=== PATIENT | male | born 1945 | race Caucasian/White ===

== ENCOUNTER 2020-12-28 05:29 | Day surgery (SDC) | payer OTHER ==
[2020-12-22 13:34] LABS: BASOPHILS % (AUTO) 0.2 % (0-1); EOSINOPHILS % (AUTO) 0 % (0-6); LYMPHOCYTES # (AUTO) 0.8 X10'3 (1.1-4.8); LYMPHOCYTES % (AUTO) 13.7 % (21-51); MEAN CORPUSCULAR HEMOGLOBIN 30.4 PG (27.0-31.0); MEAN CORPUSCULAR HGB CONC 33.2 g/dL (33.0-36.5); MEAN CORPUSCULAR VOLUME 91.4 FL (78-98); MEAN PLATELET VOLUME 9.5 FL (7.4-10.4); MONOCYTES # (AUTO) 0.5 X10'3 (0-0.9); MONOCYTES % (AUTO) 8.3 % (2-12); NEUTROPHILS # (AUTO) 4.7 X10'3 (1.8-7.7); NEUTROPHILS % (AUTO) 77.8 % (42-75); PRE OP HEMOGLOBIN 13.3 g/dL (14.0-17.9); PRE OP PLATELET COUNT 180 X10'3 (140-440); RED BLOOD COUNT 4.37 X10'6 (4.70-6.10); RED CELL DISTRIBUTION WIDTH 13.8 % (11.5-14.5)
[2020-12-22 13:41] LABS: ALBUMIN 3.8 G/DL (3.4-5.0); ALBUMIN/GLOBULIN RATIO 1.3 (1.1-1.5); ALKALINE PHOSPHATASE 68 IU/L (46-116); BLOOD UREA NITROGEN 16 MG/DL (7-18); BUN/CREATININE RATIO 18.6 (5.4-32.0); CALCIUM 8.8 MG/DL (8.5-10.1); CHLORIDE 108 MMOL/L (99-107); CREATININE 0.86 MG/DL (0.60-1.10); PRE OP ALT 28 U/L (30-65); PRE OP ANION GAP 7 (8-16); PRE OP AST 21 U/L (10-37); PRE OP GLUCOSE 104 MG/DL (70-104); PRE OP POTASSIUM 4.6 MMOL/L (3.4-5.1); PRE OP SODIUM 144 MMOL/L (135-145); TOTAL CARBON DIOXIDE 29.1 MMOL/L (24-32); TOTAL PROTEIN 6.7 G/DL (6.4-8.2); eGFR 87 ML/MIN
[2020-12-22 14:41] LABS: UA COLLECTION TYPE VOIDED
[2020-12-22 14:42] LABS: CLARITY,URINE CLEAR (Clear); COLOR,URINE YELLOW (Yellow); GLUCOSE, URINE NEGATIVE (Neg); KETONES,URINE NEGATIVE (Neg); LEUKOCYTE ESTERASE ,URINE NEGATIVE (Neg); NITRITES, URINE NEGATIVE (Neg); OCCULT BLOOD,URINE NEGATIVE (Neg); PROTEIN,URINE NEGATIVE (Neg); UROBILINOGEN,URINE 0.2 E.U/dL (0.2-1.0)
[2020-12-28] VITALS (17 sets, daily range): BP systolic 136–175; BP diastolic 78–95
[~2020-12-28] VITALS: Ht 188 cm; Wt 78.3 kg
[~2020-12-28 05:29] MED LIST: PRED10TA PO; ringers solution, lacted 1,000 ML IV SCH
[2020-12-28] MEDS ORDERED: cefazolin/dext.iso 2gm/100ml IV ONE (05:30)
[2020-12-28] MEDS ORDERED: famotidine 20mg tablet PO ONE (05:30)
[2020-12-28] MEDS ORDERED: meperidine/PF 25mg/ml syringe ONE (07:34)
[2020-12-28] MEDS ORDERED: fentaNYL/PF 50MCG/1 ML 2ML syringe ONE (07:34)
[2020-12-28] MEDS ORDERED: midazolam 1 mg/ML 2ml injection ONE (07:34)
[2020-12-28] MEDS ORDERED: sevoflurane 250ml liquid IH ONE (07:35)
[2020-12-28] MEDS ORDERED: rocuronium 10mg/ml inj IV ONE ×2 (07:35→07:43)
[2020-12-28] MEDS ORDERED: dexamethasone sod phosphate 10mg/ml inj ONE (07:35)
[2020-12-28] MEDS ORDERED: propofol inj 20 ML IV ONE (07:43)
[2020-12-28] MEDS ORDERED: LIDOcaine 2% (20mg/ml) 5ml vial ONE (07:43)
[2020-12-28] MEDS ORDERED: ondansetron/PF 4mg/2ml inj ONE (07:54)
[2020-12-28] MEDS ORDERED: BUPIVAcaine/PF 2.5mg/ml (0.25%) 10ml vial ONE (08:00)
[2020-12-28] MEDS ORDERED: ondansetron/PF 4mg/2ml inj IV PRN (08:05)
[2020-12-28] MEDS ORDERED: proCHLORperazine 10 MG/2 ml inj IV PRN (08:05)
[2020-12-28] MEDS ORDERED: morphine 4 MG/ML inj SYRINge IV PRN (08:05)
[2020-12-28] MEDS ORDERED: ringers solution, lacted 1,000 ML IV SCH (08:05)
[2020-12-28] MEDS ORDERED: meperidine/PF 25mg/ml syringe IV PRN ×2 (08:05)
[2020-12-28] MEDS ORDERED: morphine 2 MG/ML inj. syringe IV PRN (08:05)
[2020-12-28] MEDS ORDERED: acetaminophen 1,000mg/100ml IV 100 ML IV ONE (08:16)
--- NOTE | 2020-12-28 09:54 | NUR ---
Received from OR via , accompanied by Anesthesiologist DR CATALAN and report given by Anesthesiolgist. PT PRESENTS WITH 20G LEFT HAND, ABD RESSING DRY AND INTACT, VSS. Addendum: 12/28/20 at 1004 by Sera Braun RN, RN Amended: Links added.
[2020-12-28] MEDS: meperidine/PF 25mg/ml syringe IV PRN ×2 (10:06→10:38)
== END 2020-12-28 12:14 | disposition home or self-care (01) ==
LOC: PAS 05:29
PROVIDERS: ATTEND Surgery
DX: K43.9 Ventral hernia without obstruction or gangrene (principal); M35.3 Polymyalgia rheumatica; Z20.822 Contact with and (suspected) exposure to COVID-19; Z79.899 Other long term (current) drug therapy; Z79.2 Long term (current) use of antibiotics; Z72.89 Other problems related to lifestyle; Z98.41 Cataract extraction status, right eye; Z96.651 Presence of right artificial knee joint; Z87.891 Personal history of nicotine dependence; Z80.1 Family history of malignant neoplasm of trachea, bronchus and lung
CPT/HCPCS: 36415; 49652; 80053; 81003; 82948; 85025; 93005; C1758; C1781; J0131; J0780; J1100; J2001; J2175; J2250; J2405; J2704; J3010; J3490; U0003; U0005; Z7506; Z7508; Z7512; A4215; A4618; J7120